=== PATIENT | female | born 1995 | race Caucasian/White ===

== ENCOUNTER 2020-07-23 16:43 | Emergency (ER) | payer BC ==
--- NOTE | 2020-07-23 16:57 | ED Physician Documentation ---
History of Present Illness - Stated complaint Stated Complaint: med refill - Chief complaint Chief Complaint: General - History obtained from History obtained from: Patient - History of Present Illness Timing: Prior to arrival - Additonal information Additional information: 25-year-old female presents the emergency department for medication refill of her venlafaxine. She has been taking this fairly consistently since January 2020. Her last dose was nearly 72 hours ago since then she has begun to feel that she is quite irritable as well is having some body tingling. She was unable to reach her psychiatrist for refill. She denies thoughts of self-harm or harm to others. In general she has felt that this is been a useful medication in management of her anxiety and depression. Denies tobacco use but does endorse occasional cannabis use. Review of Systems Constitutional: reports: Reviewed and negative Ears: reports: Reviewed and negative Nose: reports: Reviewed and negative Throat: reports: Reviewed and negative Cardiac: reports: Reviewed and negative Respiratory: reports: Reviewed and negative GI: reports: Reviewed and negative : reports: Reviewed and negative Skin: reports: Reviewed and negative Musculoskeletal: reports: Reviewed and negative Neurologic: denies: Difficulty speaking, Near syncope, Syncope, Seizure, Confused, Headache, LOC Psychiatric: reports: Depressed, Anxiety. denies: Suicidal, Homicidal, Hallucinations, Delusions, Insomnia Endocrine: reports: Reviewed and negative PD PAST MEDICAL HISTORY - Present Medications Home Medications: Ambulatory Orders Medication Instructions Recorded Confirmed Venlafaxine HCl [Venlafaxine HCl 75 mg PO DAILY 07/23/20 07/23/20 ER] Venlafaxine HCl [Venlafaxine HCl 75 mg PO DAILY 30 Days #30 07/23/20 ER] cap.er.24h - Allergies Allergies/Adverse Reactions: Allergies Allergy/AdvReac Type Severity Reaction Status Date / Time No Known Drug Allergies Allergy Verified 07/23/20 16:47 PD ED PE NORMAL - General General: Alert and oriented X 3, No acute distress, Well developed/nourished - HEENT HEENT: PERRL, Ears normal - Neck Neck: Supple, no meningeal sign, No adenopathy - Cardiac Cardiac: RRR, No murmur - Respiratory Respiratory: No respiratory distress - Abdomen Abdomen: Normal bowel sounds, Soft, Non tender - Female Female : Deferred, Pt declined - Derm Derm: Normal color, Warm and dry, No rash - Neuro Neuro: Alert and oriented X 3, 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 She reports that it was fairly helpful in controlling her anxiety and depression and without it she is feeling quite irritable as well as feels like she has body tingling. I will write a refill for her prescription advise close follow-up with her psychiatrist. Her vital signs and clinical exam are unremarkable. Departure - Departure Disposition: 01 Home, Self Care Clinical Impression: Medication refill, History of depression Condition: Stable Record reviewed to determine appropriate education?: Yes Prescriptions: Venlafaxine HCl [Venlafaxine HCl ER] 75 mg PO DAILY 30 Days #30 cap.er.24h Comments: We have written for a refill of your venlafaxine. We have given you a dose here in the emergency department. Please continue to follow-up with your psychiatrist for longer-term medication refills and management of your depression/anxiety.
[2020-07-23] MEDS ORDERED: VENLAFAXINE ER 75 MG CAPSULE PO STA (17:20)
[2020-07-23 17:25] VITALS: BP 115/72
== END 2020-07-23 17:26 | disposition home or self-care (01) ==
LOC: ED 16:43
DX: Z76.0 Encounter for issue of repeat prescription (principal); F32.9 Major depressive disorder, single episode, unspecified
CPT/HCPCS: 99282; 99283; A9270

== ENCOUNTER 2020-10-30 00:42 | Emergency (ER) | payer BC ==
--- NOTE | 2020-10-30 01:51 | ED Physician Documentation ---
PD HPI UPPER EXT INJURY - Stated complaint Stated Complaint: RT THUMB LAC - Chief complaint Chief Complaint: Laceration - History obtained from History obtained from: Patient - History of Present Illness Location: Right, Hand (dorsum of thumb, proximal phalanx.) Type of injury: Laceration (she was washing dishes and the rim of it broke, got laceration of thumb. Denies any FB sensation. States the dish broke in just large pieces, no shards per se.) Where injury occurred: Home Timing - onset: Today Timing - details: Abrupt onset, Still present Worsened by: Palpating Associated symptoms: No: Weakness, Numbness, Tingling Similar symptoms before: Has not had sx before Review of Systems Neurologic: denies: Focal weakness, Numbness PD PAST MEDICAL HISTORY - Past Medical History Past Medical History: Yes Cardiovascular: None Respiratory: None Endocrine/Autoimmune: None Psych: Depression, Anxiety - Past Surgical History Past Surgical History: No - Present Medications Home Medications: Ambulatory Orders Medication Instructions Recorded Confirmed Venlafaxine HCl [Venlafaxine HCl 75 mg PO DAILY 07/23/20 07/23/20 ER] - Allergies Allergies/Adverse Reactions: Allergies Allergy/AdvReac Type Severity Reaction Status Date / Time No Known Drug Allergies Allergy Verified 07/23/20 16:47 - Social History Does the pt smoke?: No Smoking Status: Never smoker Does the pt drink ETOH?: Yes Does the pt have substance abuse?: Yes - Immunizations Immunizations are current?: No Immunizations: TDAP >10years/unknown - POLST Patient has POLST: No PD ED PE NORMAL - Vitals Vital signs reviewed: Yes - General General: Alert and oriented X 3, No acute distress, Well developed/nourished - Derm Derm: Normal color, Warm and dry - Extremities Extremities: Other (1.2 cm laceration dorsum proximal phalanx right thumb, without FB nor active bleeding. The wound opens with ROM of the thumb. ) - Neuro Neuro: Alert and oriented X 3, No motor deficit, No sensory deficit Results - Vitals Vitals: Oxygen O2 Source Room air Procedures - Laceration (location) right thumb Length in cm: 1.2 Wound type: Linear, Into subcut fat, Clean Neurovascular status: Sensory intact, Motor intact, Vascular intact Tendon involvement: Tendon intact Anesthesia: Lidocaine 2% with epi Skin layer closure: Nylon, Running, Size #-0 - enter number (4), Sutures - enter # (5) Other: Patient tolerated well, No complications, Neurovascular intact, Dressing applied, Tetanus UTD Complexity: Simple PD MEDICAL DECISION MAKING - ED course Complexity details: considered differential, d/w patient Departure - Departure Disposition: 01 Home, Self Care Clinical Impression: Laceration of thumb Qualifiers: Encounter type: initial encounter Damage to nail status: without damage Foreign body presence: without foreign body Laterality: right Qualified Code(s): S61.011A - Laceration without foreign body of right thumb without damage to nail, initial encounter Condition: Stable Record reviewed to determine appropriate education?: Yes Instructions: ED Laceration Hand Comments: It is okay to wash and shower. Clean off the wound twice a day with soap and water, or peroxide and water. Apply some antibiotic ointment to it to keep it moist. Also to watch for signs of infection such as purulence, redness or increasing pain. Return to your primary care or the ER at the specified time for suture removal. Tylenol or ibuprofen as needed for pains. Suture removal 8 to 10 days. Discharge Date/Time: 10/30/20 02:20
[2020-10-30 02:21] VITALS: BP 125/80
== END 2020-10-30 02:20 | disposition home or self-care (01) ==
LOC: ED 00:42
DX: S61.011A Laceration without foreign body of right thumb without damage to nail, initial encounter (principal); W25.XXXA Contact with sharp glass, initial encounter; Y93.G1 Activity, food preparation and clean up; Y92.009 Unspecified place in unspecified non-institutional (private) residence as the place of occurrence of the external cause
CPT/HCPCS: 12001; 99281; 99282